=== PATIENT | male | born 1960 | race African-American/Black ===

== ENCOUNTER 2025-01-08 12:29 | Inpatient (IN) | payer OTHER ==
[2025-01-08] VITALS (8 sets, daily range): BP systolic 121–142; BP diastolic 80–90; PULSE 70–79; RESP 18; TEMP 97.5–97.6; O2SAT 96–100
[~2025-01-08] VITALS: Ht 175.3 cm; Wt 73.0 kg
[2025-01-08 12:49] LABS: PLATELET COUNT (AUTO) 161 K/uL (150-450); RED BLOOD CELL COUNT(AUTO) 2.81 MIL/uL (4.50-5.90); RED CELL DISTRIBUTION WIDTH 14.5 % (11.5-14.5); WHITE BLOOD COUNT (AUTO) 4.7 K/uL (4.5-11.0)
[2025-01-08 12:56] LABS: CALCIUM, TOTAL 8.7 mg/dL (8.8-10.5); CREATININE 11.62 mg/dL (0.60-1.30); GLOMERULAR FILTR. RATE CALC 4 mL/min (>60); GLUCOSE,RANDOM 121 mg/dL (70-110); SODIUM SERUM 140 mmol/L (136-145)
[2025-01-08 13:04] LABS: LACTIC ACID 0.9 mmol/L (0.4-2.0)
[2025-01-08 13:06] LABS: TROPONIN I-HIGH SENSITIVITY 13 ng/L (<76)
[2025-01-08 13:11] LABS: ALCOHOL, BLOOD (SERUM) < 3 mg/dL (0-10)
[2025-01-08 13:13] LABS: UREA NITROGEN, BLOOD 161 mg/dL (7-18)
[2025-01-08] MEDS ORDERED: LORazepam 2 MG/ML VIAL ONE (13:59)
[2025-01-08] MEDS: LORazepam 2 MG/ML VIAL IVP ONE (14:02)
[2025-01-08] MEDS ORDERED: HEPARIN SODIUM,PORCINE 5,000 UNITS/ML VIAL ONE (14:21)
[2025-01-08 15:09] LABS: APPEARANCE,URINE CLEAR (CLEAR); GLUCOSE, URINE (UA) NEGATIVE (NEGATIVE); LEUKOCYTE ESTERASE ,URINE TRACE (NEGATIVE); NITRATE,URINE NEGATIVE (NEGATIVE); OCCULT BLOOD,URINE SMALL (NEGATIVE); PH,URINE DRUG SCREEN 6.0 (5.0-8.0); SPECIFIC GRAVITIY, URINE 1.010 (1.003-1.030)
[2025-01-08 15:15] LABS: ALCOHOL, URINE DRUG SCREEN NEGATIVE (NEGATIVE); AMPHET/METH SCREEN,URINE NEGATIVE (NEGATIVE); BARBITURATE SCREEN, URINE NEGATIVE (NEGATIVE); CANNABINOID SCREEN,URINE NEGATIVE (NEGATIVE); COCAINE SCREEN,URINE NEGATIVE (NEGATIVE); METHADONE SCREEN, URINE NEGATIVE (NEGATIVE)
[2025-01-08] MEDS ORDERED: MAGNESIUM HYDROXIDE SUSPENSION 30 ML UDCUP PO PRN (15:45)
[2025-01-08] MEDS ORDERED: MORPHINE SULFATE 2 MG/ML SYRINGE IVP PRN (15:45)
[2025-01-08] MEDS ORDERED: ONDANSETRON HCL 4 MG/2 ML VIAL IVP PRN (15:45)
[2025-01-08] MEDS ORDERED: ZOLPIDEM TARTRATE 5 MG TABLET PO PRN (15:45)
[2025-01-08] MEDS ORDERED: ACETAMINOPHEN 325 MG TABLET PO PRN (15:45)
[2025-01-08] MEDS ORDERED: HYDROCODONE/ACETAMINOPHEN 5-325 MG TABLET PO PRN (15:45)
[2025-01-08] MEDS ORDERED: BISACODYL 10 MG RECTAL RECTAL SUPPOSITORY PR PRN (15:45)
[2025-01-08 15:46] LABS: SQUAMOUS EPITHELIAL CELL,UR Few /LPF (None Seen)
[2025-01-08] MEDS: HEPARIN SODIUM,PORCINE 5,000 UNITS/ML VIAL SQ SCH (16:00)
[2025-01-08] MEDS: EPOETIN ALFA 10,000 UNITS/ML VIAL SQ ONE (17:32)
[2025-01-08] MEDS: SODIUM BICARBONATE 75 MEQ in SODIUM CHLORIDE 0.45% 1,000 ML IV ONE (17:32)
[2025-01-08] MEDS ORDERED: SODIUM CHLORIDE 0.9% 1,000 ML ONE (20:33)
[2025-01-08] MEDS: DOCUSATE SODIUM 100 MG CAPSULE PO SCH (21:00)
[2025-01-09] VITALS: BP 146/93; PULSE 85; RESP 17; TEMP 97.9; O2SAT 100
[2025-01-09 04:00] VITALS: BP 145/98; PULSE 76; RESP 18; TEMP 98.4; O2SAT 98
[2025-01-09 06:42] LABS: PLATELET COUNT (AUTO) 152 K/uL (150-450); RED BLOOD CELL COUNT(AUTO) 2.92 MIL/uL (4.50-5.90); RED CELL DISTRIBUTION WIDTH 13.8 % (11.5-14.5); WHITE BLOOD COUNT (AUTO) 6.3 K/uL (4.5-11.0)
[2025-01-09 07:00] LABS: CALCIUM, TOTAL 8.6 mg/dL (8.8-10.5); CREATININE 6.33 mg/dL (0.60-1.30); GLOMERULAR FILTR. RATE CALC 11.0 mL/min (>60); GLUCOSE,RANDOM 137.0 mg/dL (70-110); SODIUM SERUM 138.0 mmol/L (136-145); UREA NITROGEN, BLOOD 71.0 mg/dL (7-18)
[2025-01-09 08:11] VITALS: BP 150/93; PULSE 87; RESP 18; TEMP 98.2; O2SAT 98
[2025-01-09] MEDS: PANTOPRAZOLE SODIUM 40 MG DR TABLET PO SCH (08:30)
[2025-01-09] MEDS ORDERED: SODIUM CHLORIDE 0.9% IRRIG BTL 1,000 ML IRRIG ONE (10:58)
[2025-01-09 11:59] VITALS: BP 137/85; PULSE 76; RESP 18; TEMP 99; O2SAT 98
[2025-01-09 16:12] VITALS: BP 118/79; PULSE 81; RESP 21; TEMP 99.3; O2SAT 98
[2025-01-09 20:00] VITALS: BP 129/88; PULSE 96; RESP 18; TEMP 98.6; O2SAT 95
[2025-01-09] MEDS: TAMSULOSIN HCL 0.4 MG CAPSULE PO SCH (20:52)
[2025-01-10] VITALS (15 sets, daily range): BP systolic 96–124; BP diastolic 54–88; PULSE 69–110; RESP 16–18; TEMP 97.6–98.6; O2SAT 96–98
[2025-01-10 06:17] LABS: PLATELET COUNT (AUTO) 139 K/uL (150-450); RED BLOOD CELL COUNT(AUTO) 3.00 MIL/uL (4.50-5.90); RED CELL DISTRIBUTION WIDTH 14.2 % (11.5-14.5); WHITE BLOOD COUNT (AUTO) 6.7 K/uL (4.5-11.0)
[2025-01-10 06:32] LABS: CALCIUM, TOTAL 8.8 mg/dL (8.8-10.5); CREATININE 7.12 mg/dL (0.60-1.30); GLOMERULAR FILTR. RATE CALC 9.0 mL/min (>60); GLUCOSE,RANDOM 128.0 mg/dL (70-110); SODIUM SERUM 141.0 mmol/L (136-145); UREA NITROGEN, BLOOD 76.0 mg/dL (7-18)
[2025-01-10] MEDS ORDERED: HEPARIN SODIUM,PORCINE 1,000 UNITS/ML VIAL IVP ONE (09:10)
[2025-01-10] MEDS ORDERED: SODIUM CHLORIDE 0.9% IRRIG BTL 1,000 ML IRRIG ONE (09:59)
[2025-01-10] MEDS: SODIUM CHLORIDE 0.9% 1,000 ML IV SCH (10:51)
[2025-01-10] MEDS ORDERED: MORPHINE SULFATE 4 MG/ML VIAL IVP PRN (14:30)
[2025-01-10] MEDS: HEPARIN SODIUM,PORCINE 1,000 UNITS/ML VIAL IVCATH ONE ×2 (19:10)
[2025-01-11 04:41] VITALS: BP 120/86; PULSE 86; RESP 18; TEMP 98.2; O2SAT 96
[2025-01-11 05:54] LABS: PLATELET COUNT (AUTO) 141 K/uL (150-450); RED BLOOD CELL COUNT(AUTO) 2.94 MIL/uL (4.50-5.90); RED CELL DISTRIBUTION WIDTH 14.3 % (11.5-14.5); WHITE BLOOD COUNT (AUTO) 7.0 K/uL (4.5-11.0)
[2025-01-11 06:00] LABS: CALCIUM, TOTAL 8.3 mg/dL (8.8-10.5); CREATININE 4.0 mg/dL (0.60-1.30); GLOMERULAR FILTR. RATE CALC 18.0 mL/min (>60); GLUCOSE,RANDOM 112.0 mg/dL (70-110); SODIUM SERUM 139.0 mmol/L (136-145); UREA NITROGEN, BLOOD 35.0 mg/dL (7-18)
[2025-01-11 07:26] VITALS: BP 126/77; PULSE 87; RESP 18; TEMP 98; O2SAT 97
[2025-01-11] MEDS ORDERED: HEPARIN SODIUM,PORCINE 1,000 UNITS/ML VIAL IVP ONE (08:27)
[2025-01-11 11:33] VITALS: BP_SYST 121; PULSE 89; RESP 18; TEMP 98; O2SAT 96
== END 2025-01-11 12:15 | disposition short-term general hospital (02) | DRG 73 ==
LOC: EMS 12:32 → EDH 13:40 → 5N 20:12
PROVIDERS: ADMIT Internal Medicine; ATTEND Internal Medicine
PROC: 5A1D70Z Performance of Urinary Filtration, Intermittent, Less than 6 Hours Per Day (ICD-10-PCS; principal; 2025-01-08)
PROC: 5A1D70Z Performance of Urinary Filtration, Intermittent, Less than 6 Hours Per Day (ICD-10-PCS; 2025-01-10)
DX: G90.89 Other disorders of autonomic nervous system (principal); N18.6 End stage renal disease; N13.8 Other obstructive and reflux uropathy; G93.49 Other encephalopathy; E87.20 Acidosis, unspecified; I12.0 Hypertensive chronic kidney disease with stage 5 chronic kidney disease or end stage renal disease; N13.30 Unspecified hydronephrosis; N17.9 Acute kidney failure, unspecified; N25.81 Secondary hyperparathyroidism of renal origin; D63.1 Anemia in chronic kidney disease; N40.1 Benign prostatic hyperplasia with lower urinary tract symptoms; R33.8 Other retention of urine; R31.9 Hematuria, unspecified; Z99.2 Dependence on renal dialysis; Z79.899 Other long term (current) drug therapy
CPT/HCPCS: 36556; 51702; 71045; 76770; 80048; 80307; 81001; 83605; 83690; 83880; 83970; 84100; 84153; 84484; 85025; 85610; 87340; 90935; 93005; 97116; 97163; 99291; G0480; J0885; J1644; J2060; J3490; J7030; 36415-L1; 36415-TC

== ENCOUNTER 2025-01-16 13:18 | Inpatient (IN) | payer OTHER ==
[~2025-01-16] VITALS: Ht 175.3 cm; Wt 66.0 kg
[2025-01-16] MEDS: SODIUM CHLORIDE 0.9% 1,000 ML IV ONE (13:56)
[2025-01-16] MEDS: HEPARIN SODIUM,PORCINE 5,000 UNITS/ML VIAL IVP ONE (13:56)
[2025-01-16] MEDS: VANCOMYCIN 1GM/WATER(PEG/NADA) 200 ML IV ONE (13:56)
[2025-01-16 14:00] LABS: PLATELET COUNT (AUTO) 161 K/uL (150-450); RED BLOOD CELL COUNT(AUTO) 2.89 MIL/uL (4.50-5.90); RED CELL DISTRIBUTION WIDTH 14.3 % (11.5-14.5); WHITE BLOOD COUNT (AUTO) 7.5 K/uL (4.5-11.0)
[2025-01-16 14:05] LABS: CALCIUM, TOTAL 8.3 mg/dL (8.8-10.5); CREATININE 5.27 mg/dL (0.60-1.30); GLOMERULAR FILTR. RATE CALC 13 mL/min (>60); GLUCOSE,RANDOM 132 mg/dL (70-110); SODIUM SERUM 136 mmol/L (136-145); UREA NITROGEN, BLOOD 76 mg/dL (7-18)
[2025-01-16 14:14] LABS: LACTIC ACID 0.9 mmol/L (0.4-2.0); TROPONIN I-HIGH SENSITIVITY 13 ng/L (<76)
[2025-01-16] MEDS ORDERED: ONDANSETRON HCL 4 MG/2 ML VIAL IVP PRN (14:15)
[2025-01-16] MEDS ORDERED: ACETAMINOPHEN 325 MG TABLET PO PRN (14:15)
[2025-01-16 14:29] LABS: ASPARTATE AMINOTRANSFERASE 14.0 U/L (15-37); CREATINE KINASE, TOTAL ONLY 49.0 U/L (39-308); TOTAL PROTEIN, SERUM 6.6 g/dL (6.4-8.2)
[2025-01-16 15:42] LABS: APPEARANCE,URINE CLEAR (CLEAR); GLUCOSE, URINE (UA) NEGATIVE (NEGATIVE); LEUKOCYTE ESTERASE ,URINE TRACE (NEGATIVE); NITRATE,URINE NEGATIVE (NEGATIVE); OCCULT BLOOD,URINE LARGE (NEGATIVE); SPECIFIC GRAVITIY, URINE 1.011 (1.003-1.030)
[2025-01-16 15:48] LABS: SULFOSALICYLIC ACID,URINE 2+ (Negative)
[2025-01-16 15:49] LABS: SQUAMOUS EPITHELIAL CELL,UR Rare /LPF (None Seen)
[2025-01-16 16:13] VITALS: BP 101/70; PULSE 60; RESP 18; TEMP 97.7; O2SAT 100
[2025-01-16 19:41] VITALS: BP 108/75; PULSE 73; RESP 18; TEMP 98.2; O2SAT 97
[2025-01-16] MEDS: TAMSULOSIN HCL 0.4 MG CAPSULE PO SCH (20:15)
[2025-01-16] MEDS: DOCUSATE SODIUM 100 MG CAPSULE PO SCH (20:15)
[2025-01-16] MEDS: HEPARIN SODIUM,PORCINE 5,000 UNITS/ML VIAL SQ SCH (20:16)
[2025-01-17] VITALS (14 sets, daily range): BP systolic 96–127; BP diastolic 55–77; PULSE 63–103; RESP 18–19; TEMP 97.9–99.3; O2SAT 97–100
[2025-01-17] MEDS: FAMOTIDINE 20 MG TABLET PO SCH (08:32)
[2025-01-17] MEDS ORDERED: SODIUM CHLORIDE 0.9% 1,000 ML ONE (10:44)
[2025-01-17] MEDS ORDERED: HEPARIN SODIUM,PORCINE 1,000 UNITS/ML VIAL ONE (12:00)
[2025-01-17] MEDS: HEPARIN SODIUM,PORCINE 1,000 UNITS/ML VIAL IVCATH ONE ×2 (15:25)
== END 2025-01-17 16:50 | disposition short-term general hospital (02) | DRG 683 ==
LOC: EMS 14:21 → EDH 14:29 → 5S 15:54
PROVIDERS: ADMIT Internal Medicine; ATTEND Internal Medicine
PROC: 5A1D70Z Performance of Urinary Filtration, Intermittent, Less than 6 Hours Per Day (ICD-10-PCS; principal; 2025-01-17)
DX: N17.9 Acute kidney failure, unspecified (principal); I12.0 Hypertensive chronic kidney disease with stage 5 chronic kidney disease or end stage renal disease; N18.6 End stage renal disease; R55 Syncope and collapse; N40.0 Benign prostatic hyperplasia without lower urinary tract symptoms; I95.9 Hypotension, unspecified; D63.1 Anemia in chronic kidney disease; N25.81 Secondary hyperparathyroidism of renal origin
CPT/HCPCS: 71045; 80048; 80076; 81001; 81002; 82550; 83605; 83880; 84145; 84484; 85025; 85610; 85730; 87040; 87081; 87205; 90935; 93005; 96365; 96366; 96375; 99285; J1644; J7030; 36415-L1; 36415-TC